=== PATIENT | female | born 1985 | race Caucasian/White ===

== ENCOUNTER 2020-05-28 01:10 | Day surgery (SDC) | payer OTHER, SELFPAY ==
[2020-05-14 10:54] VITALS: BMI 35.8
[2020-05-28] VITALS (11 sets, daily range): BP systolic 80–115; BP diastolic 45–71; PULSE 61–89; RESP 12–16; TEMP 36.3–36.5; O2SAT 95–100; BMI 35.6
[2020-05-28 06:34] LABS: Urine Cotinine NEGATIVE
--- NOTE | 2020-05-28 07:06 | WPDHPUPDATE1 ---
History and Physical Update Update Date/Time: 05/28/20 07:06 History and Physical has been reviewed, including an updated exam of the patient. There are NO changes in the patient's condition. Risks, benefits, and alternatives have been discussed and questions answered. Patient agrees to proceed with procedure.
--- NOTE | 2020-05-28 07:06 | PM.PROC ---
Procedure Note - Detailed Date of procedure: 05/28/20 Pre-op diagnosis: Macromastia Post-op diagnosis: same Procedure performed: She is here today for bilateral breast reduction. Previously and again today the risks, benefits, alternatives were discussed in extensive detail. I wanted her to be very realistic about the risks involved as well as expectations. We discussed aftercare and what to monitor for. She understands we can never guarantee final breast size and there will always be asymmetry. I was very upfront and honest about the risks of sensation change and even nipple loss (). Made sure answered all of her questions to her satisfaction today and consent was obtained. She was marked in the preoperative holding area with their verification. The patient was taken to the operating room placed supine on the operating table. Anesthesia was provided by anesthesiology. She was prepped and draped in a standard sterile fashion. A surgical time-out was taken. Stab incisions were made and I tumessed with a tumescent solution. I marked out the nipple-areolar complex at 42 mm. I then de-epithelialized the pedicle. The pedicle was well left well more than 2 cm in thickness. I then removed the inferior portion of the breast as well as the central keel to get shape based on preoperative planning. At this point copiously irrigated with saline solution and verified a strict hemostasis. I reapproximated the pillars using a 2-0 PDS as well as along the IMF. I tailor tacked the breast into place with barby. She was placed in a sitting position. I verified the nipple-areolar complex position based on preoperative markings, intraoperative measurements, and observation which were in full agreement. This nipple-areolar complex was marked at 42 mm in size. I then placed supine and de-epithelialized this. Nipple-areolar complex was inset with 3-0 Monocryl. I closed the vertical incision with 3-0 Monocryl in the IMF with 3-0 stratafix. Then everything was closed using a running subcuticular 4-0 Monocryl followed by Steri-Strips. A dressing was placed followed by surgical bra. Patient was awoke and taken to PACU without difficulty. All instrument sponge counts were correct at the end of the case. Anesthesia: GLMA Surgeon: Brent Blankenship MD Estimated blood loss (mL): 30 Drains: No Packing: No Pathology: yes (Bilateral breast tissue) Complications: No immediate complications Condition: stable Disposition: PACU Findings: Inverted T Superior Medial Pedicle Right: 795.3 grams Left: 976.3 grams
--- NOTE | 2020-05-28 07:10 | WPDANESEPPF ---
Anes - Initial Pre Proc Eval Procedure: Operation Date: 05/28/20 07:30 Proposed Procedures p Bilateral Reduction Mammoplasty - Brent Blankenship MD Date/Time: 05/28/20 07:10 Surgeon: Brent Blankenship MD Pre Op Diagnosis: Macromastia Patient Data Age: 34 Gender: F Height: 1.68 m Weight: 100.7 kg Allergies Allergy/AdvReac Type Severity Reaction Status Date / Time No Known Allergies Allergy Verified 05/14/20 10:54 Home Medications Medication Instructions Recorded Confirmed Type bupropion HCl 150 mg tablet,12 hr 150 mg PO DAILY 02/17/20 05/14/20 History sustained-release metformin 500 mg tablet 500 mg PO DAILY 02/17/20 05/14/20 History spironolactone 100 mg tablet 100 mg PO DAILY 02/17/20 05/14/20 History biotin 5,000 mcg SUBLINGUAL DAILY 05/14/20 05/14/20 History calcium citrate [Citracal] 1,000 mg PO DAILY 05/14/20 05/14/20 History cholecalciferol (vitamin D3) 100 mcg PO DAILY 05/14/20 05/14/20 History [Vitamin D3] levonorgestrel [Mirena] 1 device INTRAUTERINE ONCE 05/14/20 05/14/20 History multivitamin 1 tablet PO DAILY 05/14/20 05/14/20 History hydrocodone 5 mg-acetaminophen 325 1 tablet PO Q6H PRN #15 tablet 05/18/20 05/18/20 Rx mg tablet ondansetron HCl 4 mg tablet 4 mg PO Q6H PRN #30 tablet 05/18/20 Rx Laboratory Tests 05/28/20 06:13 Cotinine Negative Patient hx anesthesia problems: none Family hx anesthesia problems: none PMFSH Past Medical History Medical History Anxiety Depression PCOS (polycystic ovarian syndrome) Surgical History Surgical History History of section, classical History of cholecystectomy History of gastric restrictive surgery History of repair of ACL Left Family History Family History Father Hypertension Depression High cholesterol Sibling Depression Anxiety Social History Social History Years smoked: 6 Smoking status: Former smoker Tobacco type: cigarettes Additional smoking assessment comments: QUIT 6 YEARS Alcohol intake: current Substance use: never Substance use type: marijuana Last use: 6 Spiritual care concerns: No Anes - Eval Final PreProcedure Day of Procedure 05/28/20 07:10 Patient weight: obese Heart: regular rate and rhythm Lungs: clear to auscultation and normal air movement Airway: Mallampati scale class II Neurological: alert and oriented Last oral intake: >/= 8 hours ASA classification: III Emergent: no Anesthetic plan: proceed Anesthesia type and monitoring: general LMA Informed Consent: The patient's anesthetic plan and its attendant risks and benefits were discussed with the patient/family/POA. Questions were solicited and answers provided to the satisfaction of the patient/family/POA.
[2020-05-28] MEDS: LACTATED RINGERS 1,000 ML 30 ML IV CONT ×2 (07:41→11:19)
[2020-05-28] MEDS: ceFAZolin 2 GM/D5W 50 ML 2 GM/50 ML BAG IVPB (07:51)
[2020-05-28] MEDS: ONDANSETRON INJ 4 MG/2 ML VIAL IV PUSH (11:14)
[2020-05-28] MEDS: fentaNYL CITRATE INJ (*CRX) 100 MCG/2 ML VIAL 25 MCG IV PUSH ×4 (11:16→11:37)
[2020-05-28] MEDS: ONDANSETRON HCL ODT 4 MG TABLET PO (12:58)
== END 2020-05-28 13:08 | disposition home or self-care (01) ==
PROVIDERS: Visit Provider Surgery Plastic and Reconstructive Surgery
PROC: 0HBV0ZZ Excision of Bilateral Breast, Open Approach (ICD-10-PCS; CPT 19318; principal; 2020-05-28 07:30)
DX: N62 Hypertrophy of breast (principal); F41.8 Other specified anxiety disorders; Z79.84 Long term (current) use of oral hypoglycemic drugs; Z87.891 Personal history of nicotine dependence; E66.9 Obesity, unspecified; Z68.35 Body mass index [BMI] 35.0-35.9, adult; Z79.899 Other long term (current) drug therapy
CPT/HCPCS: 19318; 80307; 88305; A9270; J0171; J0690; J1100; J1170; J2250; J2405; J2704; J3010; J7120

== ENCOUNTER → 2021-02-11 13:43 | Outpatient (REF) | payer OTHER, SELFPAY | LOC: ANHLAB 13:43 | PROVIDERS: Visit Provider Surgery Plastic and Reconstructive Surgery | DX: N60.01 Solitary cyst of right breast (principal) | CPT/HCPCS: 88304 ==